=== PATIENT | female | born 1965 | race Caucasian/White ===

== ENCOUNTER 2023-02-28 16:57 | Emergency (ER) | payer MEDICAID | END 2023-02-28 18:00 | disposition home or self-care (01) | LOC: JD.ED 16:57 | DX: K04.7 Periapical abscess without sinus (principal) | CPT/HCPCS: 99283 ==

== ENCOUNTER 2023-08-18 20:53 | Emergency (ER) | payer MEDICAID ==
[2023-08-18] MEDS ORDERED: Ketorolac 60 MG/2 ML SDV IM ONE (21:23)
== END 2023-08-18 23:02 | disposition home or self-care (01) ==
LOC: JD.ED 20:53
DX: M79.671 Pain in right foot (principal); Z88.8 Allergy status to other drugs, medicaments and biological substances; Z79.899 Other long term (current) drug therapy
CPT/HCPCS: 73610; 73620; 96372; 99283; J1885; 99282